=== PATIENT | male | born 1950 | race Caucasian/White ===

== ENCOUNTER 2024-05-11 09:45 | Outpatient (CLI) | payer MEDICARE | END 2024-05-11 09:46 | disposition home or self-care (01) | LOC: CSHULT 09:45 | PROVIDERS: ATTEND Family Medicine | DX: K80.80 Other cholelithiasis without obstruction (principal) | CPT/HCPCS: 76700 ==

== ENCOUNTER 2024-09-27 13:47 | Outpatient (CLI) | payer MEDICARE | END 2024-09-27 13:48 | disposition home or self-care (01) | LOC: CSHCT 13:47 | PROVIDERS: ATTEND Family Medicine | DX: R82.998 Other abnormal findings in urine (principal) | CPT/HCPCS: 74176 ==